=== PATIENT | female | born 1995 | race Caucasian/White ===

== ENCOUNTER 2019-09-23 17:12 | Emergency (ER) | payer OTHER ==
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
== END 2019-09-23 17:35 | disposition home or self-care (01) ==
LOC: VM.ED 17:12
DX: S40.012A Contusion of left shoulder, initial encounter (principal); S40.819A Abrasion of unspecified upper arm, initial encounter; M25.552 Pain in left hip; V58.5XXA Driver of pick-up truck or van injured in noncollision transport accident in traffic accident, initial encounter
CPT/HCPCS: 99284